=== PATIENT | female | born 1975 | race Caucasian/White ===

== ENCOUNTER → 2017-12-12 | Outpatient (CLI) | payer BC ==
[~2017-12-12] MED LIST: NS 100 ML IV 100 ML IV ONE
--- NOTE | 2017-12-12 12:24 | CT ---
CT pelvis with contrast Indication: Abnormal uterine bleeding, pelvic mass and pain desiccation Technique: 5 mm axial images of the pelvis with coronal and sagittal reformatted images provided afte r IV contrast administration. Findings: The visualized small bowel colon and rectum are unremarkable aside for a few distal colonic diverticula. The appendix is normal. Urinary bladder is unremarkable. Tubal ligation clips are noted within the deepening pelvis no longer in the adnexal region. There is a tubular hypo attenuating les ion measuring 5.3 x 2.8 cm on axial image 25 given Hounsfield attenuation is consistent a cyst. The n either ovary demonstrates discrete mass. No pelvic free fluid. No adenopathy. Abdominal aorta is not visualized however the iliac arteries are within normal limits for size. No acute osseous abnormality identified. Impression: 1.Tubular hypoenhancing lesion within the posterior lateral left pelvis has imaging characteristicsco nsistent with a cyst, given morphology this lesion is likely represents a hydrosalpinx and less likel y a cystic adnexal lesion. Sonographic follow-up can be performed as clinically warranted. There is n o surrounding inflammatory change or enhancement within the cystic lesion to suggest a superimposed i nfected hydrosalpinx or underlying solid mass. 2. Previous tubal ligation with both clips now within the deep in it pelvis. 3. Mild distal colonic diverticulosis without evidence of diverticulitis. Reported By:
== END ==
LOC: RAD 11:28
PROVIDERS: ATTEND Obstetrics & Gynecology
DX: N93.8 Other specified abnormal uterine and vaginal bleeding (principal); N94.89 Other specified conditions associated with female genital organs and menstrual cycle; R19.09 Other intra-abdominal and pelvic swelling, mass and lump; R19.8 Other specified symptoms and signs involving the digestive system and abdomen
CPT/HCPCS: 72193; A4222